=== PATIENT | female | born 2005 | race Caucasian/White ===

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

== ENCOUNTER 2025-01-15 13:51 | Emergency (ER) | payer OTHER, BC ==
[2025-01-15] MEDS: diphenhydrAMINE 50 MG/ML SDV IM ONE (14:12)
[2025-01-15] MEDS: Ondansetron 4 MG Tab.DIS PO ONE (14:12)
== END 2025-01-15 14:28 | disposition home or self-care (01) ==
LOC: DL.ED 13:51
DX: T63.441A Toxic effect of venom of bees, accidental (unintentional), initial encounter (principal); Z79.899 Other long term (current) drug therapy
CPT/HCPCS: 96372; 99282; 99283; A9270; J1200